=== PATIENT | female | born 1955 | race Hispanic/Latino ===

== ENCOUNTER → 2018-02-12 | Outpatient (CLI) | payer OTHER | LOC: MAMMO 13:15 | PROVIDERS: ATTEND Obstetrics & Gynecology | DX: Z12.31 Encounter for screening mammogram for malignant neoplasm of breast (principal) | CPT/HCPCS: 77067 ==

== ENCOUNTER → 2018-10-29 | Outpatient (CLI) | payer OTHER ==
--- NOTE | 2018-10-29 14:16 | Diagnostic Imaging Report ---
Exam: Bone mineral density study. History: OSTEOPOROSIS SCREENING Comparison: Baseline October 05, 2015, most recent January 21, 2017. Discussion: Evaluation of the left hip and lumbar spine was performed. The study is technically adequate. The patient's fracture risk is compared to an age-matched control. The patient denies prior surgery/fracture of the spine, hips or forearm. Left hip femoral neck bone mineral density: 0.8 g/cm2, T-score is -0.4, Z-score is 0.9. Left hip total bone mineral density: 1 g/cm2, T-score is 0.5, Z-score is 1.5. The BMD change versus baseline is - 5.2% (statistically significant) and the BMD change versus previous - 4.8% (statistically significant). Lumbar spine total bone mineral density: 1.1 g/cm2, T-score is 0.1, Z-score is 1.5. The BMD change versus baseline is - 2.5% (statistically significant) and the BMD change versus previous - 2.7% (statistically significant). Impression: Bone mineralization by WHO Classification is normal, the fracture risk is not increased. Signed by: Dr. Jett Zuniga D.O., M.M.M. on 10/29/2018 2:12 PM
== END ==
LOC: DX 12:57
PROVIDERS: ATTEND Obstetrics & Gynecology
DX: Z13.820 Encounter for screening for osteoporosis (principal)
CPT/HCPCS: 77080

== ENCOUNTER → 2022-05-09 | Outpatient (CLI) | payer OTHER | LOC: MAMMO 09:26 | PROVIDERS: ATTEND Obstetrics & Gynecology | DX: Z12.31 Encounter for screening mammogram for malignant neoplasm of breast (principal); Z13.820 Encounter for screening for osteoporosis | CPT/HCPCS: 77067; 77080 ==